=== PATIENT | male | born 1995 | race Caucasian/White ===

== ENCOUNTER 2018-12-06 08:39 | Emergency (ER) | payer OTHER ==
[2018-12-06 08:44] VITALS: BP 147/79
--- NOTE | 2018-12-06 09:02 | EDPHY ---
H & P Time Seen by Provider: 12/06/18 08:54 HPI/ROS: CHIEF COMPLAINT: Right Achilles pain HISTORY OF PRESENT ILLNESS: 23-year-old male complaining of acute right Achilles pain after he was throwing a baseball for prolonged period yesterday. No direct trauma or fall. He is able to bear weight. Notes no footdrop. REVIEW OF SYSTEMS: A ten point review of systems was performed and is negative with the exception of the items mentioned in the HPI PHYSICAL EXAM (Prior to examination, patient consented to physical exam, hands were washed and my usual and customary physical exam procedures followed) 1) GENERAL: Well-developed, well-nourished, alert and oriented. Appears to be in no acute distress. 2) HEAD: Normocephalic 3) HEENT: Pupils equal, round, reactive to light bilaterally. 4) LUNGS: Breathing comfortably. 5) MUSCULOSKELETAL: proximal tibia and fibula nontender . Tender to palpation proximal Achilles. No step-off. No skin changes 5th MT nontender negative Hammer test, compartments soft. Dorsiflexion plantar flexion intact and present both actively and passively. No deficits. 6) SKIN: No skin changes 7) VASCULAR: DP,PT pulses and cap refill present and brisk DIFFERENTIAL DIAGNOSIS: in no particular order including but not limited to fracture, sprain, compartment syndrome Procedure: Splint A jessi boot splint was applied by ER film technician. After application of the splint I returned and re-examined the patient. The splint was adequately immobilizing the joint and distal to the splint the patient's circulation and sensation were intact. Patient shows no signs of compartment syndrome. Was given orthopedic precautions. Smoking Status: Never smoked Constitutional: Initial Vital Signs Temperature (C) 36.6 C 12/06/18 08:41 Heart Rate 74 12/06/18 08:41 Respiratory Rate 16 12/06/18 08:41 Blood Pressure 147/79 H 12/06/18 08:41 O2 Sat (%) 95 12/06/18 08:41 O2 Delivery Mode Room Air Allergies/Adverse Reactions: No Known Allergies Allergy (Unverified 12/06/18 08:44) Home Medications: Medication Instructions Recorded NK [No Known Home Meds] 12/06/18 MDM/Departure - [facility] ED Course/Re-evaluation: Doubt Achilles rupture, doubt fracture absence of trauma. Discussed more than likely acute Achilles tendinitis. No evidence of overlying skin changes. At this time I do not think that imaging studies indicated. I have recommended a Jessi boot and close follow up with Podiatry as he may necessitate outpatient imaging. Meantime I recommended rest, ice packs. He is neurovascular intact distally with no footdrop. Patient feels comfortable being discharged. All questions and concerns addressed by myself. Patient given my usual and customary discharge precautions and instructions regarding their clinical impression. Care of patient under supervision of secondary supervising physician Dr Pedersen . - Depart Disposition: Home, Routine, Self-Care Clinical Impression: Right Achilles tendinitis Condition: Good Instructions: Achilles Tendinitis (ED) Additional Instructions: Return to the ER immediately if you experience discoloration, have worsening pain, numbness, tingling, or any other symptoms that concern you. If you received x-rays in the emergency department today, be advised, that ligamentous , tendon, muscular, and other non-bony injury cannot be fully ruled out. Try to keep your affected extremity elevated above the level of your chest, and keep cold packs on the affected area, for the next 48 hours. Adult Pain & Fever Control: We recommend Acetaminophen (Tylenol) and Ibuprofen (Motrin,Advil) for pain and fever control. When fever is high or pain severe, both drugs can be used at the same time, but at different intervals. Please note the time differences. Your dose is: Acetaminophen 650mg every 4 to 6 hours Ibuprofen 600mg every 6 hours with food OR Note: do not take Acetaminophen with Hydrocodone (Vicodin, Lortab) or Oycodone (Percocet). These medications also contain Acetaminophen. No more than 3000mg of Acetaminophen should be taken in 24 hours (for an adult). Referrals: Ian Lester DPM [Doctor of Podiatric Medicine] - 2-3 days, call for appt.
== END 2018-12-06 09:12 | disposition home or self-care (01) ==
DX: M76.61 Achilles tendinitis, right leg (principal)
CPT/HCPCS: L4386